=== PATIENT | female | born 1985 | race Caucasian/White ===

== ENCOUNTER 2021-02-03 17:48 | Emergency (ER) | payer BC, OTHER ==
[2021-02-03] MEDS ORDERED: LORazepam 0.5 MG (ATIVAN) TABLET PO STA (19:13)
--- NOTE | 2021-02-03 19:56 | ED General ---
General Chief Complaint: Cardiac/General Problems Stated Complaint: TACHYCARDIA | HR 160 Nursing Triage Note: Here for elevated HR. Was at movie theater and felt like heart was beating fast and became dizzy and light headed. HR on watch was 160. Is no longer dizzy, but does feel jittery. Also feels nauseated and feels like she needs to have a BM. HR on arrival is 106. Has had two previous episodes of elevated HR and has been seen in [place] ED. Has appointment tommorrow with cardiology in [place]. Was started on propanolol 1 month ago but states it gave her GI issues and lost 17 lbs. Has not had propanolol in almost 2 weeks. Nursing Sepsis Screen: No Definite Risk Source of Information: Patient Exam Limitations: Intoxication History of Present Illness Date Seen by Provider: Feb 03, 2021 Time Seen by Provider: 18:00 Initial Comments Patient is a 35-year-old female with a history of palpitations and anxiety who presents with acute episode of palpitations while at the movie theater. Symptoms began 30 minutes prior to ED arrival. Patient was wearing are tracking watch which revealed a heart rate in the 120s to 160s. Patient reports feeling a heightened degree of anxiety during the episode but not prior. She reports feeling a pounding sensation anxiety in need to have a bowel movement. Patient drove directly to the emergency department. On ED arrival she continues to have symptoms with a heart rate variable between 1000-120. She denies chest pain chest tightness nausea vomiting, shortness of breath and sweats. She has been evaluated twice in the past 2 months for the same condition at an outside emergency department and states that she has had a normal work-up. She does not have a family history of primary arrhythmia. She does have a follow-up with a adjunct [employer] of [employer] tomorrow. No other acute symptoms or complaints.. Timing/Duration: 1 Hour Severity: Moderate Modifying Factors: improves with Other Associated Systoms: Other Allergies and Home Medications Allergies Coded Allergies: clindamycin (Verified Allergy, Unknown, rash, 02/03/21) erythromycin base (Verified Allergy, Unknown, rash, 02/03/21) propranolol (Verified Allergy, Unknown, stomach issues- lost weight , 02/03/21) Patient Home Medication List Home Medication List Reviewed: Yes Review of Systems Review of Systems Constitutional: see HPI EENTM: see HPI Respiratory: see HPI Cardiovascular: see HPI Gastrointestinal: see HPI Genitourinary: see HPI Musculoskeletal: see HPI Skin: see HPI Psychiatric/Neurological: See HPI Hematologic/Lymphatic: See HPI Immunological/Allergic: see HPI All Other Systems Reviewed Negative Unless Noted: Yes Past [id number] Hx Past Med/Social Hx: Reviewed Nursing Past Med/Soc Hx Patient Social History Alcohol Use: Denies Use Smoking Status: Never a Smoker 2nd Hand Smoke Exposure: No Recent Infectious Disease Expo: No Recent Hopitalizations: No Seasonal Allergies Seasonal Allergies: No Past Medical History Surgeries: Yes Orthopedic Respiratory: No Cardiac: Yes (tachycardia) Palpitations Neurological: No Genitourinary: No Gastrointestinal: No Musculoskeletal: No Endocrine: No HEENT: No Cancer: No Psychosocial: No Integumentary: No Blood Disorders: No Physical Exam Vital Signs Vital Signs - First Documented 02/03/21 17:58 Temp 37.5 Pulse 106 Resp 22 B/P (MAP) 150/96 (114) Pulse Ox 99 Capillary Refill : Less Than 3 Seconds Height, Weight, BMI Height: '" Weight: lbs. oz. kg; BMI Method: General Appearance: No Apparent Distress, Anxious, Other Eyes: Bilateral Eye Normal Inspection, Bilateral Eye PERRL, Bilateral Eye EOMI HEENT: PERRL/EOMI, Normal ENT Inspection, Pharynx Normal, Moist Mucous Membranes Neck: Full Range of Motion, Non Tender, Supple Respiratory: Chest Non Tender, Lungs Clear Cardiovascular: Normal Peripheral Pulses Back: Normal Inspection Extremity: Normal Capillary Refill Neurologic/Psychiatric: Alert, Oriented x3, Normal Mood/Affect, dry wall installations mechanic II-XII Norm as Tested Lymphatic: No Adenopathy Progress/Results/Core Measures Suspected Sepsis Recent Fever Within 48 Hours: No Infection Criteria Present: None New/Unexplained Altered Menta: No Sepsis Screen: No Definite Risk SIRS Temperature: Pulse: 106 Respiratory Rate: 22 Blood Pressure 150 /96 Mean: 114 Results/Orders My Orders Orders - BEVERLEY MÉNDEZ DO Ekg Tracing (02/03/21 18:03) Lorazepam Tablet (Ativan Tablet) (02/03/21 19:13) Vital Signs/I&O 02/03/21 17:58 Temp 37.5 Pulse 106 Resp 22 B/P (MAP) 150/96 (114) Pulse Ox 99 Capillary Refill : Less Than 3 Seconds Blood Pressure Mean: 114 Departure Communication (Admissions) EKG: Sinus tachycardia, no arrhythmia acute ST-T wave changes or prolonged QTC interval. Patient with variable heart tachycardia from 90s to 120s. She remains in a si nus rhythm throughout ED stay. Symptoms significantly improved with Ativan and after the patient talked with her . Heart rate in the 90s at time of discharge. Patient has follow-up appointment adjunct [employer] tomorrow. Impression Primary Impression: Sinus tachycardia Additional Impressions: Palpitations Anxiety state Disposition: 01 HOME, SELF-CARE Condition: Critical Departure-Patient Inst. Decision time for Depature: 19:55 Referrals: ELIN ABBOTT MD (PCP/Family) Primary Care Physician Patient Instructions: Palpitations (DC) Add. 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 Fill new prescriptions and take as directed. Return to the closest ED if new or concerning symptoms. All discharge instructions reviewed with patient and/or family. Voiced understanding. Scripts Alprazolam (Xanax) 0.25 Mg Tablet 0.25 MG PO Q6H for 7 Days, #10 TAB Prov: BEVERLEY MÉNDEZ DO 02/03/21 BEVERLEY MÉNDEZ DO Feb 03, 2021 19:56
[2021-02-03] MEDS ORDERED: ALPR0.25 PO (19:57)
[2021-02-03 20:45] VITALS: BP 128/73
== END 2021-02-03 20:45 | disposition home or self-care (01) ==
LOC: ER FS 17:50
DX: R00.0 Tachycardia, unspecified (principal); R00.2 Palpitations; F41.9 Anxiety disorder, unspecified; Z88.1 Allergy status to other antibiotic agents; Z88.8 Allergy status to other drugs, medicaments and biological substances
CPT/HCPCS: 93005

== ENCOUNTER → 2022-04-02 | Outpatient (CLI) | payer BC ==
[~2022-04-02] MED LIST: ALPR0.25 PO
[2022-04-02 19:18] LABS: BILIRUBIN,TOTAL 0.2 MG/DL (0.1-1.0); CALCIUM 9.3 MG/DL (8.5-10.1); CREATININE SERUM 0.82 MG/DL (0.60-1.30); POTASSIUM 4.1 MMOL/L (3.6-5.0)
[2022-04-02 19:19] LABS: ALBUMIN 4.5 GM/DL (3.2-4.5); TOTAL PROTEIN 7.3 GM/DL (6.4-8.2)
== END ==
LOC: LAB FS 17:38
PROVIDERS: ATTEND Registered Nurse Emergency
DX: Z01.419 Encounter for gynecological examination (general) (routine) without abnormal findings (principal); Z00.00 Encounter for general adult medical examination without abnormal findings; F41.9 Anxiety disorder, unspecified; N92.6 Irregular menstruation, unspecified
CPT/HCPCS: 36415; 80053; 83001; 83002; 84146; 84443

== ENCOUNTER → 2022-11-11 | Outpatient (CLI) | payer BC ==
[2022-11-11 12:45] LABS: BASOPHILS % (AUTO) 0 % (0-10); EOSINOPHILS % (AUTO) 1 % (0-10); HEMATOCRIT 41 % (35-52); HEMOGLOBIN 13.8 g/dL (11.5-16.0); LYMPHOCYTES # (AUTO) 1.5 10^3/uL (1.0-4.0); LYMPHOCYTES % (AUTO) 19 % (12-44); MEAN CORPUSCULAR HEMOGLOBIN 29 pg (25-34); MEAN CORPUSCULAR HGB CONC 34 g/dL (32-36); MEAN CORPUSCULAR VOLUME 87 fL (80-99); MEAN PLATELET VOLUME 10.1 fL (9.0-12.2); MONOCYTES # (AUTO) 0.4 10^3/uL (0.0-1.0); MONOCYTES % (AUTO) 5 % (0-12); NEUTROPHILS # (AUTO) 5.8 10^3/uL (1.8-7.8); NEUTROPHILS % (AUTO) 75 % (42-75); PLATELET COUNT 259 10^3/uL (130-400); WHITE BLOOD COUNT 7.7 10^3/uL (4.3-11.0)
[2022-11-11 14:18] LABS: BUN/CREATININE RATIO 19; CARBON DIOXIDE 24 MMOL/L (21-32); CHLORIDE 103 MMOL/L (98-107); CREATININE SERUM 0.75 MG/DL (0.60-1.30); GFR ESTIMATED 106; SODIUM 136 MMOL/L (135-145)
[2022-11-11 14:19] LABS: ALANINE AMINOTRANSFERASE 15 U/L (0-55); ALBUMIN 4.6 GM/DL (3.2-4.5); ALKALINE PHOSPHATASE 57 U/L (40-136); BILIRUBIN,TOTAL 0.3 MG/DL (0.1-1.0); CALCIUM 9.5 MG/DL (8.5-10.1); GLUCOSE 105 MG/DL (70-105); TOTAL PROTEIN 7.6 GM/DL (6.4-8.2)
== END ==
LOC: LAB FS 11:49
PROVIDERS: ATTEND Registered Nurse Emergency
DX: R03.0 Elevated blood-pressure reading, without diagnosis of hypertension (principal); R10.31 Right lower quadrant pain
CPT/HCPCS: 36415; 80053; 85025; 86141